=== PATIENT | male | born 1960 | race Caucasian/White ===

== ENCOUNTER 2019-03-08 17:30 | Emergency (ER) | payer OTHER ==
[2019-03-08 17:38] VITALS: BP 126/79
[2019-03-08] MEDS ORDERED: PROPARACAINE 0.5% 15 ML OPHT DROP ONE (17:42)
[2019-03-08] MEDS ORDERED: FLUORESCEIN SODIUM 1 MG STRIP OP ONE (17:42)
--- NOTE | 2019-03-08 17:52 | EDPHY ---
H & P Stated Complaint: got redwood dust in r eye Time Seen by Provider: 03/08/19 17:40 HPI/ROS: Chief Complaint: Foreign body right eye HPI: The patient presents the ED with a foreign body to the right eye. He has a small piece of saw dust in his right eye he sustained when he was cutting wood earlier today. The patient does not wear contact lenses. He denies additional acute complaints. He denies any vision loss. REVIEW OF SYSTEMS: As above Source: Patient - Personal History Current Tetanus Diphtheria and Acellular Pertussis (TDAP): Yes - Medical/Surgical History Hx Asthma: No Hx Chronic Respiratory Disease: No Hx Diabetes: No Hx Cardiac Disease: No Hx Renal Disease: No Hx Cirrhosis: No Hx Alcoholism: No Hx HIV/AIDS: No Hx Splenectomy or Spleen Trauma: No Other PMH: hypothyroid - Social History Smoking Status: Never smoked - Physical Exam Exam: Visual Acuity: noted from Nurse's notes. Pupils: equal round and reactive to light EOMI Skin: no proptosis, no periorbital erythema or swelling, no vesicles Conjunctivae: Small foreign body noted to the right upper conjunctiva Cornea: exam with fluorescein shows no evidence of a corneal abrasion Anterior chamber: normal, no hyphema or hypopyon Constitutional: Initial Vital Signs Temperature (C) 36.8 C 03/08/19 17:35 Heart Rate 56 L 03/08/19 17:35 Respiratory Rate 17 03/08/19 17:35 Blood Pressure 126/79 H 03/08/19 17:35 O2 Sat (%) 95 03/08/19 17:35 O2 Delivery Mode Room Air Allergies/Adverse Reactions: Penicillins Allergy (Verified 03/08/19 17:35) Home Medications: Medication Instructions Recorded Levothyroxine 03/08/19 Medical Decision Making Procedures: Procedure: Foreign body removal Indication: Foreign body to the right eye conjunctiva. Details: After topical anesthetic a foreign body was removed using a sterile Q- tip without complication. Floor seen exam demonstrates no evidence of a concurrent corneal abrasion. Departure - Departure Disposition: Home, Routine, Self-Care Clinical Impression: Foreign body in conjunctival sac Condition: Good Instructions: Eye Foreign Body (ED) Additional Instructions: 1. Return to the emergency department for any increasing pain, vision loss or other concerns. 2. Be sure to wear safety gases when working with tools and machinery. Referrals: Sonya Giron MD [Primary Care Provider] - As per Instructions
== END 2019-03-08 18:07 | disposition home or self-care (01) ==
DX: T15.91XA Foreign body on external eye, part unspecified, right eye, initial encounter (principal); E03.9 Hypothyroidism, unspecified